=== PATIENT | female | born 1970 | race Caucasian/White ===

== ENCOUNTER 2016-12-02 15:45 | Emergency (ER) | payer BC ==
[~2016-12-02] VITALS: Ht 152.4 cm; Wt 89.6 kg
[~2016-12-02 15:45] MED LIST: ATI0.5 PO
[2016-12-02 17:32] VITALS: BP 130/77
== END 2016-12-02 17:32 | disposition home or self-care (01) ==
LOC: ED 15:45
DX: G44.209 Tension-type headache, unspecified, not intractable (principal); E66.9 Obesity, unspecified; F41.9 Anxiety disorder, unspecified; F32.9 Major depressive disorder, single episode, unspecified; Z90.49 Acquired absence of other specified parts of digestive tract
CPT/HCPCS: J1885

== ENCOUNTER 2017-05-25 15:22 | Emergency (ER) | payer BC ==
[~2017-05-25] VITALS: Ht 152.4 cm; Wt 88.9 kg
[2017-05-25 15:31] VITALS: Ht 152.4 cm; Wt 88.9 kg
[2017-05-25 18:14] VITALS: BP 129/69
== END 2017-05-25 18:14 | disposition home or self-care (01) ==
LOC: ED 15:22
DX: J20.9 Acute bronchitis, unspecified (principal); I10 Essential (primary) hypertension

== ENCOUNTER 2017-05-27 16:58 | Emergency (ER) | payer BC ==
[~2017-05-27] VITALS: Ht 152.4 cm; Wt 88.9 kg
[2017-05-27 17:04] VITALS: Ht 152.4 cm; Wt 88.9 kg
[2017-05-27 18:05] LABS: BASOPHIL % 0.4 % (0-2); PLATELET COUNT 368 x10^3mcL (130-400)
[2017-05-27 18:11] LABS: RED CELL DISTRIBUTION WIDTH 14.7 % (11.5-14.5)
[2017-05-27 18:15] LABS: CALCIUM 8.6 mg/dL (8.5-10.1); CARBON DIOXIDE 26.5 mmol/L (21-32); CHLORIDE SERUM 99 mmol/L (98-107); CREATININE SERUM 0.9 mg/dL (0.6-1.0); GFR1 > 60 mL/min; GLUCOSE SERUM 157 mg/dL (74-106); POTASSIUM SERUM 3.8 mmol/L (3.5-5.1); SODIUM SERUM 137 mmol/L (136-145)
[2017-05-27 18:19] LABS: ALBUMIN 3.5 g/dL (3.4-5.0); ALKALINE PHOSPHATASE 110 U/L (46-116); ALT/SGPT 46 U/L (14-59); AST/SGOT 23 U/L (15-37); BILIRUBIN TOTAL 0.1 mg/dL (0.20-1.00); MAGNESIUM 1.8 mg/dL (1.8-2.4); TOTAL PROTEIN, SERUM 7.9 g/dL (6.4-8.2)
[2017-05-27 18:32] LABS: T3 TOTAL 1.48 ng/mL
[2017-05-27 19:26] VITALS: BP 140/62
[2017-05-27 19:32] LABS: AMPHETAMINE QUAL UR NONE DETECTED (NEG <=1000)
[2017-05-27 19:35] LABS: FREE T4 1.18 ng/dL (0.76-1.46); FREE THYROXINE INDEX 2.8 ug/dL (1.4-4.5); T4(THYROXINE) 8.6 ug/dL (4.7-13.3)
== END 2017-05-27 19:26 | disposition home or self-care (01) ==
LOC: ED 16:58
PROVIDERS: Emergency Medicine
DX: J06.9 Acute upper respiratory infection, unspecified (principal); I10 Essential (primary) hypertension; T36.95XA Adverse effect of unspecified systemic antibiotic, initial encounter; Y92.89 Other specified places as the place of occurrence of the external cause
CPT/HCPCS: 36415; 83880; 84439

== ENCOUNTER 2018-05-30 21:30 | Emergency (ER) | payer BC ==
[~2018-05-30] VITALS: Ht 157.5 cm; Wt 77.7 kg
[2018-05-30 21:33] VITALS: Ht 157.5 cm; Wt 77.7 kg
[2018-05-30 23:08] VITALS: BP 140/79
== END 2018-05-30 23:08 | disposition home or self-care (01) ==
LOC: ED 21:30
DX: G56.02 Carpal tunnel syndrome, left upper limb (principal); I10 Essential (primary) hypertension; E11.9 Type 2 diabetes mellitus without complications; E78.00 Pure hypercholesterolemia, unspecified; F41.9 Anxiety disorder, unspecified; F32.9 Major depressive disorder, single episode, unspecified
CPT/HCPCS: 82962; A4570

== ENCOUNTER 2018-06-03 02:24 | Emergency (ER) | payer BC ==
[~2018-06-03] VITALS: Ht 152.4 cm; Wt 79.4 kg
[2018-06-03 02:28] VITALS: Ht 152.4 cm; Wt 79.4 kg
[2018-06-03 03:50] LABS: CALCIUM 8.3 mg/dL (8.5-10.1); CARBON DIOXIDE 27.5 mmol/L (21-32); CHLORIDE SERUM 102 mmol/L (98-107); CREATININE SERUM 0.7 mg/dL (0.6-1.0); GFR1 > 60 mL/min; GLUCOSE SERUM 207 mg/dL (74-106); SODIUM SERUM 137 mmol/L (136-145)
[2018-06-03 03:55] LABS: ALBUMIN 3.6 g/dL (3.4-5.0); ALKALINE PHOSPHATASE 101 U/L (46-116); ALT/SGPT 53 U/L (14-59); AST/SGOT 20 U/L (15-37); BILIRUBIN TOTAL 0.2 mg/dL (0.20-1.00); TOTAL PROTEIN, SERUM 8.1 g/dL (6.4-8.2)
[2018-06-03 05:41] VITALS: BP 122/79
== END 2018-06-03 05:41 | disposition home or self-care (01) ==
LOC: ED 02:24
PROVIDERS: Emergency Medicine
DX: M79.10 Myalgia, unspecified site (principal); E11.9 Type 2 diabetes mellitus without complications; I10 Essential (primary) hypertension; E78.00 Pure hypercholesterolemia, unspecified; F32.9 Major depressive disorder, single episode, unspecified; F41.9 Anxiety disorder, unspecified; Z90.89 Acquired absence of other organs
CPT/HCPCS: 36415; 87804; J1885

== ENCOUNTER 2018-09-17 05:31 | Emergency (ER) | payer BC ==
[~2018-09-17] VITALS: Ht 152.4 cm; Wt 83.9 kg
[2018-09-17 05:37] VITALS: Ht 152.4 cm; Wt 83.9 kg
[2018-09-17 06:49] VITALS: BP 150/94
== END 2018-09-17 06:49 | disposition home or self-care (01) ==
LOC: ED 05:31
DX: M79.602 Pain in left arm (principal); M79.605 Pain in left leg; M54.2 Cervicalgia; I10 Essential (primary) hypertension; E11.9 Type 2 diabetes mellitus without complications; R11.0 Nausea; Z90.49 Acquired absence of other specified parts of digestive tract
CPT/HCPCS: J1885

== ENCOUNTER 2019-04-10 07:08 | Inpatient (IN) | payer BC ==
[~2019-04-10] VITALS: Ht 152.4 cm; Wt 78.0 kg
[2019-04-10 07:16] VITALS: Ht 152.4 cm; Wt 78.0 kg
[2019-04-10 08:09] LABS: BASOPHIL % 0.4 % (0-2); PLATELET COUNT 325 x10^3mcL (130-400); RED CELL DISTRIBUTION WIDTH 14.3 % (11.5-14.5)
[2019-04-10 08:14] LABS: CALCIUM 9.1 mg/dL (8.5-10.1); CHLORIDE SERUM 98 mmol/L (98-107); CREATININE SERUM 0.7 mg/dL (0.6-1.0); GFR1 > 60 mL/min; GLUCOSE SERUM 139 mg/dL (74-106); POTASSIUM SERUM 3.9 mmol/L (3.5-5.1); SODIUM SERUM 139 mmol/L (136-145)
[2019-04-10 08:18] LABS: ALBUMIN 3.6 g/dL (3.4-5.0); ALKALINE PHOSPHATASE 120 U/L (46-116); ALT/SGPT 143 U/L (14-59); AST/SGOT 78 U/L (15-37)
[2019-04-10 08:20] LABS: TOTAL PROTEIN, SERUM 8.3 g/dL (6.4-8.2)
[2019-04-10] MEDS ORDERED: LOT5 PO (08:53)
[2019-04-10] MEDS ORDERED: GLUCOPHAGE1000 MG PO (08:53)
[2019-04-10 09:33] LABS: MAGNESIUM 1.7 mg/dL (1.8-2.4); PHOSPHOROUS 4.6 mg/dL (2.5-4.9)
[2019-04-10 09:39] LABS: CHOLESTEROL/HDL RATIO 6.6
[2019-04-10 10:46] VITALS: BP 142/70
[2019-04-10 12:10] VITALS: BP 117/73; BP 123/60
[2019-04-10 16:45] VITALS: BP 99/53
[2019-04-10 19:10] VITALS: BP 116/63
[2019-04-11 06:05] VITALS: BP 112/60
[2019-04-11 06:44] LABS: BASOPHIL % 0.4 % (0-2); PLATELET COUNT 300 x10^3mcL (130-400); RED CELL DISTRIBUTION WIDTH 14.4 % (11.5-14.5)
[2019-04-11 08:05] VITALS: BP 149/78
[2019-04-11 08:15] LABS: CALCIUM 8.4 mg/dL (8.5-10.1); CARBON DIOXIDE 27.8 mmol/L (21-32); CHLORIDE SERUM 102 mmol/L (98-107); CREATININE SERUM 0.6 mg/dL (0.6-1.0); GFR1 > 60 mL/min; GLUCOSE SERUM 118 mg/dL (74-106); POTASSIUM SERUM 3.8 mmol/L (3.5-5.1); SODIUM SERUM 140 mmol/L (136-145)
[2019-04-11 12:15] VITALS: BP 104/61
[2019-04-11 15:40] VITALS: BP 120/59
[2019-04-11 19:15] VITALS: BP 112/51
[2019-04-12 06:03] VITALS: BP 117/68
[2019-04-12 07:05] LABS: CALCIUM 8.8 mg/dL (8.5-10.1); CARBON DIOXIDE 27.7 mmol/L (21-32); CHLORIDE SERUM 100 mmol/L (98-107); CREATININE SERUM 0.5 mg/dL (0.6-1.0); GFR1 > 60 mL/min; GLUCOSE SERUM 119 mg/dL (74-106); POTASSIUM SERUM 3.8 mmol/L (3.5-5.1); SODIUM SERUM 138 mmol/L (136-145)
[2019-04-12] MEDS ORDERED: LIPI20 PO (07:59)
[2019-04-12 09:00] VITALS: BP 113/60
[2019-04-12 09:00] LABS: BASOPHIL % 0.4 % (0-2); PLATELET COUNT 313 x10^3mcL (130-400); RED CELL DISTRIBUTION WIDTH 14.4 % (11.5-14.5)
[2019-04-12 10:53] VITALS: BP 113/60
== END 2019-04-12 12:10 | disposition home or self-care (01) | DRG 313 ==
LOC: ED 07:08 → DU 08:49 → MU 04-11 22:26
PROVIDERS: Emergency Medicine; ADMIT Family Medicine
DX: R07.89 Other chest pain (principal); I10 Essential (primary) hypertension; E11.9 Type 2 diabetes mellitus without complications; E78.00 Pure hypercholesterolemia, unspecified; F32.9 Major depressive disorder, single episode, unspecified; F41.9 Anxiety disorder, unspecified; E83.42 Hypomagnesemia; E78.5 Hyperlipidemia, unspecified; Z90.49 Acquired absence of other specified parts of digestive tract; Z79.84 Long term (current) use of oral hypoglycemic drugs; Z79.899 Other long term (current) drug therapy
CPT/HCPCS: 82962; 83880; G0378; J2270; J3490; J7030

== ENCOUNTER 2019-09-08 04:38 | Emergency (ER) | payer BC ==
[~2019-09-08] VITALS: Ht 152.4 cm; Wt 77.6 kg
[~2019-09-08 04:38] MED LIST changes: +GLUCOPHAGE1000 MG PO; +LIPI20 PO; +LOT5 PO
[2019-09-08 04:51] VITALS: Ht 152.4 cm; Wt 77.6 kg
[2019-09-08 06:00] LABS: BASOPHIL % 0.3 % (0-2); PLATELET COUNT 253 x10^3mcL (130-400)
[2019-09-08 06:09] LABS: CALCIUM 8.9 mg/dL (8.5-10.1); CHLORIDE SERUM 99 mmol/L (98-107); CREATININE SERUM 0.5 mg/dL (0.6-1.0); GFR1 > 60 mL/min; GLUCOSE SERUM 122 mg/dL (74-106); RED CELL DISTRIBUTION WIDTH 14.8 % (11.5-14.5); SODIUM SERUM 137 mmol/L (136-145)
[2019-09-08 06:13] LABS: ALBUMIN 3.8 g/dL (3.4-5.0); ALKALINE PHOSPHATASE 82 U/L (46-116); ALT/SGPT 98 U/L (14-59); AST/SGOT 36 U/L (15-37); BILIRUBIN TOTAL 0.38 mg/dL (0.20-1.00); LIPASE 120 IU/L (73-393); TOTAL PROTEIN, SERUM 7.9 g/dL (6.4-8.2)
[2019-09-08 08:47] VITALS: BP 143/87
== END 2019-09-08 08:47 | disposition home or self-care (01) ==
LOC: ED 04:38
PROVIDERS: Emergency Medicine
DX: R10.816 Epigastric abdominal tenderness (principal); R11.0 Nausea; I10 Essential (primary) hypertension; E11.9 Type 2 diabetes mellitus without complications; E78.00 Pure hypercholesterolemia, unspecified; E66.9 Obesity, unspecified; Z68.33 Body mass index [BMI] 33.0-33.9, adult; Z90.49 Acquired absence of other specified parts of digestive tract
CPT/HCPCS: 36415; Q0092

== ENCOUNTER 2019-10-21 05:49 | Emergency (ER) | payer BC, SELFPAY ==
[~2019-10-21] VITALS: Ht 147.3 cm; Wt 75.7 kg
[2019-10-21 05:50] VITALS: Ht 147.3 cm; Wt 75.7 kg
[2019-10-21 06:34] VITALS: BP 155/92
== END 2019-10-21 06:34 | disposition home or self-care (01) ==
LOC: ED 05:49
DX: U07.1 COVID-19 (principal); I10 Essential (primary) hypertension; E11.9 Type 2 diabetes mellitus without complications; E78.00 Pure hypercholesterolemia, unspecified; Z98.890 Other specified postprocedural states; Z90.49 Acquired absence of other specified parts of digestive tract
CPT/HCPCS: U0003-CS